=== PATIENT | female | born 1955 | race Caucasian/White ===

== ENCOUNTER 2019-08-11 14:55 | Inpatient (IN) | payer OTHER ==
[~2019-08-11] VITALS: Ht 160 cm; Wt 81.4 kg
[2019-08-11 15:30] LABS: BASOPHILS % (AUTO) 0.2 % (0.0-5.0); EOSINOPHILS % (AUTO) 0.1 % (0.0-8.0); HEMATOCRIT 36.4 % (36-48); LYMPHOCYTES % (AUTO) 6.4 % (21.0-51.0); MEAN CORPUSCULAR HGB CONC 33.5 g/dL (32.0-36.0); MEAN CORPUSCULAR VOLUME 89.5 fL (79-99); MONOCYTES % (AUTO) 11.1 % (3.0-13.0); NEUTROPHILS % (AUTO) 82.2 % (40.0-77.0); PLATELET COUNT (AUTO) 439 K/uL (130-400); RED BLOOD CELL COUNT(AUTO) 4.07 MIL/uL (4.00-5.50); RED CELL DISTRIBUTION WIDTH 13.6 % (11.0-15.5); WHITE BLOOD COUNT (AUTO) 21.4 K/uL (4.8-10.8)
[2019-08-11] MEDS ORDERED: ASPIRIN 325 MG TABLET ONE (15:30)
[2019-08-11] MEDS ORDERED: NITROGLYCERIN 1GM/1 INCH PACKET TD ONE (15:31)
[2019-08-11 15:43] LABS: INR 1.09 (0.85-1.15); PARTIAL THROMBOPLASTIN TIME 32.5 SEC (26.3-35.5); PROTHROMBIN TIME 11.4 SEC (9.6-11.6)
[2019-08-11] MEDS ORDERED: IPRATROPIUM/ALBUTEROL SULFATE 3 ML SOLUTION IH ONE ×2 (15:52→16:06)
[2019-08-11 16:06] LABS: B-TYPE NATRIURETIC PEPTIDE 318 pg/mL (0-100)
[2019-08-11] MEDS ORDERED: AZITHROMYCIN 500MG+NS 250ML 250 ML IV ONE (16:07)
[2019-08-11] MEDS ORDERED: CEFTRIAXONE SODIUM 1 GM ONE (16:08)
[2019-08-11 16:13] LABS: CREATININE 1.1 mg/dL (0.5-1.5); POTASSIUM 4.5 mmol/L (3.5-5.1)
[2019-08-11 16:27] LABS: ABG BASE EXCESS -3.8 mmol/L (-2.0-3.0); ABG HCO3 18.6 mmol/L (21.0-28.0); ABG OXYGEN SATURATION 93.9 % (95.0-99.0); ABG PCO2 28 mmHg (32-45)
[2019-08-11 16:37] LABS: ALBUMIN 2.9 g/dL (3.5-5.0); BILIRUBIN,TOTAL 0.8 mg/dL (0.2-1.0); TOTAL PROTEIN, SERUM 7.5 g/dL (6.0-8.3)
[2019-08-11 16:41] LABS: TROPONIN I 0.65 ng/mL (0.00-0.06)
[2019-08-11] MEDS: NITROGLYCERIN 1GM/1 INCH PACKET TD SCH (17:30)
[2019-08-11] MEDS ORDERED: DEXTROSE 50%-WATER 50 ML DISP.SYRIN IV PRN (17:30)
[2019-08-11] MEDS: 1/2 NORMAL SALINE 1,000 ML IV SCH (17:30)
[2019-08-11] MEDS ORDERED: GLUCAGON 1MG KIT 1 MG ML IM PRN (17:30)
[2019-08-11] MEDS: IPRATROPIUM/ALBUTEROL SULFATE 3 ML SOLUTION IH SCH ×2 (18:21→23:14)
[2019-08-11 18:22] LABS: TROPONIN I 0.6 ng/mL (0.00-0.06)
[2019-08-11 20:30] VITALS: BP 145/90
[2019-08-11] MEDS: INSULIN R PO SSI SQ SCH (21:00)
[2019-08-11 21:32] LABS: TROPONIN I 0.58 ng/mL (0.00-0.06)
[2019-08-11] MEDS: AZITHROMYCIN 250 MG TABLET PO SCH (21:45)
[2019-08-11] MEDS ORDERED: CEFTRIAXONE SODIUM 2 GM VIAL IVP SCH (21:45)
[2019-08-11] MEDS: FAMOTIDINE/PF 20 MG/2 ML VIAL IV SCH (22:27)
[2019-08-11] MEDS ORDERED: LISI-613 PO (23:30)
[2019-08-12 00:20] VITALS: BP 140/74
[2019-08-12] MEDS: NITROGLYCERIN 1GM/1 INCH PACKET TD SCH ×5 (01:01→23:30)
[2019-08-12 03:36] VITALS: BP 147/80
[2019-08-12 04:08] LABS: HEMATOCRIT 31.8 % (36-48); MEAN CORPUSCULAR HGB CONC 33.5 g/dL (32.0-36.0); MEAN CORPUSCULAR VOLUME 89.4 fL (79-99); PLATELET COUNT (AUTO) 392 K/uL (130-400); RED BLOOD CELL COUNT(AUTO) 3.56 MIL/uL (4.00-5.50); RED CELL DISTRIBUTION WIDTH 13.8 % (11.0-15.5); WHITE BLOOD COUNT (AUTO) 20.9 K/uL (4.8-10.8)
[2019-08-12 04:21] LABS: ALBUMIN 2.5 g/dL (3.5-5.0); BILIRUBIN,TOTAL 0.6 mg/dL (0.2-1.0); CREATININE 1.4 mg/dL (0.5-1.5); POTASSIUM 4.4 mmol/L (3.5-5.1); TOTAL PROTEIN, SERUM 6.9 g/dL (6.0-8.3)
[2019-08-12] MEDS: INSULIN R PO SSI SQ SCH ×4 (06:13→21:35)
[2019-08-12] MEDS: IPRATROPIUM/ALBUTEROL SULFATE 3 ML SOLUTION IH SCH ×4 (06:42→23:28)
[2019-08-12] MEDS: GUAIFENESIN-DM 200/20 MG 10 ML PO PRN ×3 (07:58→21:35)
[2019-08-12 07:59] VITALS: BP 154/59
[2019-08-12] MEDS: CEFTRIAXONE SODIUM 1 GM IVP SCH (09:02)
[2019-08-12] MEDS: ASPIRIN 325 MG TABLET PO SCH (09:02)
[2019-08-12] MEDS: ENOXAPARIN SODIUM 40 MG/0.4 ML SYRINGE SQ SCH (09:03)
[2019-08-12] MEDS: 1/2 NORMAL SALINE 1,000 ML IV SCH (11:19)
[2019-08-12 11:49] VITALS: BP 154/86
[2019-08-12 15:37] VITALS: BP 155/75
--- NOTE | 2019-08-12 15:55 | NUR ---
cm note met with patient and states resides at home with spouse independent with adls and ambulation. only has a cane and walker but does not use. no provider. dc plan is back home at time of dc. Addendum: 08/12/19 at 1558 by DENISE MILLER CM Amended: Links added.
[2019-08-12 20:15] VITALS: BP 151/83
[2019-08-12] MEDS: FAMOTIDINE/PF 20 MG/2 ML VIAL IV SCH (20:49)
[2019-08-12] MEDS: AZITHROMYCIN 250 MG TABLET PO SCH (20:49)
[2019-08-13] VITALS (7 sets, daily range): BP systolic 118–150; BP diastolic 60–85
[2019-08-13] MEDS: INSULIN R PO SSI SQ SCH ×4 (07:18→21:00)
[2019-08-13] MEDS: IPRATROPIUM/ALBUTEROL SULFATE 3 ML SOLUTION IH SCH ×4 (07:35→23:08)
--- NOTE | 2019-08-13 07:35 | NUR ---
ASSESSMENT ENCOUNTERED PT A&OX3, CALM COOPERATIVE AND DOES NOT APPEAR TO BE IN ANY DISTRESS NOR ANY NEURO DEFICITS PRESENT. PT DENIES PAIN, SOB, NAUSEA. PT IS ABLE TO TOLERATE FOODS, FLUIDS AND MEDICATION WITHOUT THROAT CLEARING OR COUGH, PT IS AMBULATORY, GAIT SLOW BUT STEADY WITH STAND BY ASSIST. CALL LIGHT WITHIN REACH.
[2019-08-13] MEDS: NITROGLYCERIN 1GM/1 INCH PACKET TD SCH ×4 (07:38→23:51)
[2019-08-13] MEDS ORDERED: FUROSEMIDE 10 MG/ML 4ML VIAL IV SCH (10:30)
[2019-08-13] MEDS: ASPIRIN 325 MG TABLET PO SCH (11:54)
[2019-08-13] MEDS: EZETIMIBE 10 MG TAB PO SCH (11:54)
[2019-08-13] MEDS: CEFTRIAXONE SODIUM 1 GM IVP SCH (11:55)
[2019-08-13] MEDS: ENOXAPARIN SODIUM 40 MG/0.4 ML SYRINGE SQ SCH (11:56)
[2019-08-13] MEDS ORDERED: PHARMACY COMMUNICATION MISC SCH (15:00)
[2019-08-13] MEDS: AZITHROMYCIN 250 MG TABLET PO SCH (21:19)
[2019-08-13] MEDS: FAMOTIDINE/PF 20 MG/2 ML VIAL IV SCH (21:19)
[2019-08-13] MEDS: FUROSEMIDE 10 MG/ML 4ML VIAL IV SCH (21:19)
[2019-08-13] MEDS: GUAIFENESIN-DM 200/20 MG 10 ML PO PRN (22:34)
[2019-08-14 03:43] VITALS: BP 138/74
[2019-08-14 04:37] LABS: BASOPHILS % (AUTO) 0.8 % (0.0-5.0); EOSINOPHILS % (AUTO) 2.2 % (0.0-8.0); HEMATOCRIT 29.1 % (36-48); MEAN CORPUSCULAR HEMOGLOBIN 30.3 pg (27.0-33.0); MEAN CORPUSCULAR HGB CONC 34.3 g/dL (32.0-36.0); MEAN CORPUSCULAR VOLUME 88.2 fL (79-99); MONOCYTES % (AUTO) 8.9 % (3.0-13.0); NEUTROPHILS % (AUTO) 72.1 % (40.0-77.0); NUCLEATED RED BLOOD CELLS 0.1 % (0.0-0.19); PLATELET COUNT (AUTO) 390 K/uL (130-400); RED CELL DISTRIBUTION WIDTH 13.9 % (11.0-15.5); WHITE BLOOD COUNT (AUTO) 11.5 K/uL (4.8-10.8)
[2019-08-14 04:55] LABS: B-TYPE NATRIURETIC PEPTIDE 548 pg/mL (0-100)
[2019-08-14 05:02] LABS: CREATININE 1.1 mg/dL (0.5-1.5); MAGNESIUM 1.8 mg/dL (1.80-2.40); POTASSIUM 3.7 mmol/L (3.5-5.1)
[2019-08-14] MEDS: FUROSEMIDE 10 MG/ML 4ML VIAL IV SCH ×3 (05:09→20:15)
[2019-08-14] MEDS: NITROGLYCERIN 1GM/1 INCH PACKET TD SCH ×4 (05:31→23:01)
[2019-08-14] MEDS: INSULIN R PO SSI SQ SCH ×4 (05:46→21:06)
[2019-08-14 07:00] VITALS: BP 149/61
[2019-08-14] MEDS: IPRATROPIUM/ALBUTEROL SULFATE 3 ML SOLUTION IH SCH ×4 (07:05→23:35)
--- NOTE | 2019-08-14 07:30 | NUR ---
ASSESSMENT ENCOUNTERED PT ASLEEP BUT AROUSEABLE, A&OX3, CALM COOPERATIVE AND DOES NOT APPEAR TO BE IN ANY DISTRESS NOR ANY NEURO DEFICITS PRESENT. PT DENIES PAIN, SOB, NAUSEA. PT IS AMBULATORY, GAIT STEADY AND STRONG WITH STAND BY ASSIST. CALL LIGHT WITHIN REACH.
[2019-08-14] MEDS: ASPIRIN 325 MG TABLET PO SCH (09:35)
[2019-08-14] MEDS: EZETIMIBE 10 MG TAB PO SCH (09:35)
[2019-08-14] MEDS: ENOXAPARIN SODIUM 40 MG/0.4 ML SYRINGE SQ SCH (09:36)
[2019-08-14] MEDS: CEFTRIAXONE SODIUM 1 GM IVP SCH (09:36)
[2019-08-14 11:00] VITALS: BP 124/61
[2019-08-14] MEDS: POLYETHYLENE GLYCOL 3350 17 GM POWD.PACK PO SCH (12:59)
[2019-08-14 15:00] VITALS: BP 156/78
[2019-08-14 19:00] VITALS: BP 128/66
[2019-08-14] MEDS: AZITHROMYCIN 250 MG TABLET PO SCH (20:14)
[2019-08-14] MEDS: FAMOTIDINE/PF 20 MG/2 ML VIAL IV SCH (20:15)
[2019-08-14] MEDS: GUAIFENESIN-DM 200/20 MG 10 ML PO PRN (23:06)
[2019-08-14 23:38] VITALS: BP 162/77
[2019-08-15 04:00] VITALS: BP 124/64
[2019-08-15 04:08] LABS: BASOPHILS % (AUTO) 0.6 % (0.0-5.0); EOSINOPHILS % (AUTO) 1.9 % (0.0-8.0); HEMATOCRIT 30.6 % (36-48); LYMPHOCYTES % (AUTO) 17.6 % (21.0-51.0); MEAN CORPUSCULAR HEMOGLOBIN 30.5 pg (27.0-33.0); MEAN CORPUSCULAR HGB CONC 34.6 g/dL (32.0-36.0); MEAN CORPUSCULAR VOLUME 88.1 fL (79-99); MONOCYTES % (AUTO) 9.3 % (3.0-13.0); NEUTROPHILS % (AUTO) 70.6 % (40.0-77.0); PLATELET COUNT (AUTO) 414 K/uL (130-400); RED BLOOD CELL COUNT(AUTO) 3.48 MIL/uL (4.00-5.50); RED CELL DISTRIBUTION WIDTH 13.6 % (11.0-15.5); WHITE BLOOD COUNT (AUTO) 10.9 K/uL (4.8-10.8)
[2019-08-15 04:28] LABS: B-TYPE NATRIURETIC PEPTIDE 739 pg/mL (0-100)
[2019-08-15 04:38] LABS: MAGNESIUM 1.8 mg/dL (1.80-2.40); PHOSPHORUS 3.7 mg/dL (2.5-4.9); POTASSIUM 3.4 mmol/L (3.5-5.1); THYROID STIMULATING HORMONE 1.49 uIU/mL (0.36-3.74)
[2019-08-15] MEDS: FUROSEMIDE 10 MG/ML 4ML VIAL IV SCH (05:09)
[2019-08-15] MEDS: NITROGLYCERIN 1GM/1 INCH PACKET TD SCH ×4 (05:10→22:00)
[2019-08-15] MEDS: INSULIN R PO SSI SQ SCH ×4 (05:59→21:59)
[2019-08-15] MEDS: IPRATROPIUM/ALBUTEROL SULFATE 3 ML SOLUTION IH SCH ×4 (06:10→23:28)
[2019-08-15 07:52] VITALS: BP 146/79
[2019-08-15] MEDS ORDERED: FUROSEMIDE 10 MG/ML 4ML VIAL IV SCH (08:00)
[2019-08-15] MEDS: EZETIMIBE 10 MG TAB PO SCH (08:04)
[2019-08-15] MEDS: ENOXAPARIN SODIUM 40 MG/0.4 ML SYRINGE SQ SCH (08:04)
[2019-08-15] MEDS: POLYETHYLENE GLYCOL 3350 17 GM POWD.PACK PO SCH (08:04)
[2019-08-15] MEDS: GUAIFENESIN-DM 200/20 MG 10 ML PO PRN (08:04)
[2019-08-15] MEDS: CEFTRIAXONE SODIUM 1 GM IVP SCH (08:04)
[2019-08-15] MEDS: ASPIRIN 325 MG TABLET PO SCH (08:05)
[2019-08-15] MEDS: MAGNESIUM OXIDE 400 MG TABLET PO SCH ×2 (08:10→21:58)
[2019-08-15] MEDS ORDERED: POTASSIUM CHLORIDE 20 MEQ ERTAB PO SCH (09:00)
[2019-08-15 11:41] VITALS: BP 132/60
[2019-08-15 15:07] VITALS: BP 140/65
[2019-08-15 19:00] VITALS: BP 133/71
[2019-08-15] MEDS: AZITHROMYCIN 250 MG TABLET PO SCH (21:58)
[2019-08-15] MEDS: FAMOTIDINE/PF 20 MG/2 ML VIAL IV SCH (21:58)
[2019-08-15 23:00] VITALS: BP 117/60
[2019-08-16 03:46] LABS: BASOPHILS % (AUTO) 0.9 % (0.0-5.0); EOSINOPHILS % (AUTO) 2.6 % (0.0-8.0); HEMATOCRIT 29.8 % (36-48); LYMPHOCYTES % (AUTO) 20.7 % (21.0-51.0); MEAN CORPUSCULAR HEMOGLOBIN 29.8 pg (27.0-33.0); MEAN CORPUSCULAR HGB CONC 33.7 g/dL (32.0-36.0); MEAN CORPUSCULAR VOLUME 88.5 fL (79-99); MONOCYTES % (AUTO) 11.9 % (3.0-13.0); NEUTROPHILS % (AUTO) 63.9 % (40.0-77.0); PLATELET COUNT (AUTO) 426 K/uL (130-400); RED BLOOD CELL COUNT(AUTO) 3.37 MIL/uL (4.00-5.50); RED CELL DISTRIBUTION WIDTH 13.5 % (11.0-15.5); WHITE BLOOD COUNT (AUTO) 9.4 K/uL (4.8-10.8)
[2019-08-16 04:00] VITALS: BP 127/68
[2019-08-16 04:01] LABS: MAGNESIUM 1.8 mg/dL (1.80-2.40); PHOSPHORUS 3.3 mg/dL (2.5-4.9); POTASSIUM 3.6 mmol/L (3.5-5.1)
[2019-08-16] MEDS: NITROGLYCERIN 1GM/1 INCH PACKET TD SCH ×3 (06:26→17:20)
[2019-08-16] MEDS: INSULIN R PO SSI SQ SCH ×3 (06:50→17:19)
[2019-08-16] MEDS: IPRATROPIUM/ALBUTEROL SULFATE 3 ML SOLUTION IH SCH ×2 (06:53→11:05)
[2019-08-16 07:25] VITALS: BP 140/73
[2019-08-16] MEDS: GUAIFENESIN-DM 200/20 MG 10 ML PO PRN (08:08)
[2019-08-16] MEDS: EZETIMIBE 10 MG TAB PO SCH (08:08)
[2019-08-16] MEDS: ASPIRIN 325 MG TABLET PO SCH (08:08)
[2019-08-16] MEDS: POLYETHYLENE GLYCOL 3350 17 GM POWD.PACK PO SCH (08:08)
[2019-08-16] MEDS: CEFTRIAXONE SODIUM 1 GM IVP SCH (08:10)
[2019-08-16] MEDS: ENOXAPARIN SODIUM 40 MG/0.4 ML SYRINGE SQ SCH (08:15)
[2019-08-16 11:37] VITALS: BP 148/78
--- NOTE | 2019-08-16 12:37 | NUR ---
RD NOTIFICATION RD CONSULTS DUE TO LOS X 5. DIET: 75GMCCD. PO INTAKE 100% AND HAS GOOD APPETITE. PT STATED SHE REALLY LIKES [facility] FOOD AND HAS NO COMPLAINTS. LBM: 08/14 PER PT. NO DIFFICULTY CHEWING OR SWALLOWING FOOD/ LIQUIDS. NO COMPLAINTS OF N/V. PT COOKS 2 MEALS DAILY AT HOME, PT AND TAKE TURNS COOKING MEALS. RD RECOMMENDS CONTINUE CURRENT DIET RD WILL FOLLOW UP NEEDED, THANK YOU. Addendum: 08/16/19 at [address] Amended: Links added.
[2019-08-16 15:24] VITALS: BP 144/52
[2019-08-16] MEDS ORDERED: INSU100I13 SQ (16:40)
[2019-08-16] MEDS ORDERED: LEVO500T2 PO (16:45)
[2019-08-16] MEDS ORDERED: AEC81 PO (16:45)
[2019-08-16] MEDS ORDERED: EZET10TA13 PO (16:45)
== END 2019-08-16 18:03 | disposition home or self-care (01) | DRG 177 ==
LOC: EDH 14:55 → EDHIP 17:00 → 2DH 20:08
PROVIDERS: ADMIT Family Medicine; ATTEND Family Medicine
PROC: 5A09357 Assistance with Respiratory Ventilation, Less than 24 Consecutive Hours, Continuous Positive Airway Pressure (ICD-10-PCS; principal; 2019-08-11)
PROC: 5A09357 Assistance with Respiratory Ventilation, Less than 24 Consecutive Hours, Continuous Positive Airway Pressure (ICD-10-PCS; 2019-08-12)
DX: J15.6 Pneumonia due to other Gram-negative bacteria (principal); I50.31 Acute diastolic (congestive) heart failure; J96.01 Acute respiratory failure with hypoxia; I13.0 Hypertensive heart and chronic kidney disease with heart failure and stage 1 through stage 4 chronic kidney disease, or unspecified chronic kidney disease; N18.3 Chronic kidney disease, stage 3 (moderate); E11.22 Type 2 diabetes mellitus with diabetic chronic kidney disease; D64.9 Anemia, unspecified; F32.9 Major depressive disorder, single episode, unspecified; G47.00 Insomnia, unspecified; I25.10 Atherosclerotic heart disease of native coronary artery without angina pectoris; I65.21 Occlusion and stenosis of right carotid artery; K59.00 Constipation, unspecified; Z79.4 Long term (current) use of insulin; Z80.0 Family history of malignant neoplasm of digestive organs; Z80.41 Family history of malignant neoplasm of ovary; Z90.710 Acquired absence of both cervix and uterus; Z90.49 Acquired absence of other specified parts of digestive tract
CPT/HCPCS: 36415; 36600; 71045; 71046; 80048; 80053; 82550; 82803; 82948; 83605; 83735; 83874; 83880; 84100; 84145; 84439; 84443; 84484; 85025; 85027; 85610; 85730; 87040; 87071; 87205; 87486; 87581; 87633; 87798; 87804; 93005; 93306; 93880; 94640; 94660; 94664; 99291; G0378; J0456; J0696; J1650; J1815; J1940; J3490

== ENCOUNTER → 2019-10-08 | Outpatient (CLI) | payer OTHER ==
[~2019-10-08] MED LIST: AEC81 PO; EZET10TA13 PO; INSU100I13 SQ; LEVO500T2 PO; LISI-613 PO
== END | disposition home or self-care (01) ==
LOC: RAH 10:45
PROVIDERS: ATTEND Internal Medicine Cardiovascular Disease
DX: Z13.6 Encounter for screening for cardiovascular disorders (principal); I70.90 Unspecified atherosclerosis; M47.819 Spondylosis without myelopathy or radiculopathy, site unspecified
CPT/HCPCS: 75571

== ENCOUNTER → 2019-10-12 | Outpatient (CLI) | payer OTHER | END | disposition home or self-care (01) | LOC: SHCH 13:35 | PROVIDERS: ATTEND Internal Medicine Cardiovascular Disease | DX: I51.7 Cardiomegaly (principal); I31.3 Pericardial effusion (noninflammatory) | CPT/HCPCS: 93306 ==

== ENCOUNTER → 2024-03-06 | Outpatient (CLI) | payer OTHER ==
[~2024-03-06] MED LIST changes: -EZET10TA13 PO; +EZET10TA81 PO; -LISI-613 PO; +LISI20TA24 PO
== END | disposition home or self-care (01) ==
LOC: SHCH 12:19
PROVIDERS: ATTEND Internal Medicine Cardiovascular Disease
DX: I08.8 Other rheumatic multiple valve diseases (principal); I65.23 Occlusion and stenosis of bilateral carotid arteries; I25.10 Atherosclerotic heart disease of native coronary artery without angina pectoris; R01.1 Cardiac murmur, unspecified
CPT/HCPCS: 93306; 93880

== ENCOUNTER 2024-11-22 13:57 | Emergency (ER) | payer OTHER ==
[~2024-11-22] VITALS: Ht 160 cm; Wt 77.1 kg
--- NOTE | 2024-11-22 14:36 | NUR ---
APPLIED LG SLING TO RT ARM, PT TOLERATED WELL.
--- NOTE | 2024-11-22 14:59 | ERN ---
General Chief Complaint: Shoulder Injury/Pain Stated Complaint: SHOULDER PAIN Time Seen by MD: 14:14 Time Seen by Midlevel: 14:14 Source: patient History of Present Illness Initial Comments 69-year-old female presents to the ED for evaluation of right shoulder pain. Patient reports right shoulder fracture post fall on 11/06/2024 patient had x- rays done by PCP and was referred to ortho, but patient states she was not able to get an appointment to see ortho and was told to come to the ER. Allergies: Coded Allergies: No Known Drug Allergies (Verified Allergy, Unknown, 08/11/19) Home Meds Active Scripts Levofloxacin (Levaquin) 500 Mg Tablet, 500 MG PO DAILY for 7 Days, #7 TAB Prov:YANCY WILL Jr., MD 08/16/19 Ezetimibe (Zetia) 10 Mg Tablet, 10 MG PO DAILY for 30 Days, #30 TAB Prov:YANCY WILL Jr., MD 08/16/19 Aspirin (ASPIRIN 81 MG ECTAB) 81 Mg Ectab, 81 MG PO DAILY for 30 Days, #30 TAB.EC Prov:YANCY WILL Jr., MD 08/16/19 Reported Medications Insulin NPL/Insulin Lispro (Humalog Mix 75-25 Kwikpen) 100 Unit/1 Ml Insuln.pen, 20 UNIT SQ BID 08/16/19 Lisinopril (Lisinopril) 20 Mg Tablet, 20 MG PO DAILY, TAB 08/11/19 Past Medical History Past Medical History: No Pertinent History, Diabetes-Type II, High Cholesterol, Hypertension, Renal Disese Past Surgical History: Other ROS Dictation Constitutional: Negative for fever,chills, and weight loss Eyes: Negative for injury, pain,redness, and discharge ENT: Negative for injury,pain or swelling Cardiovascular: Negative for chest pain, palpitations, and edema Respiratory: Negative for shortness of breath, cough, and wheezing, Abdomen/GI: Negative for abdominal pain, nausea, vomiting, diarrhea, and constipation Back: Negative for injury and pain : Negative for injury, bleeding and discharge MS/Extremity: Positive for right shoulder pain Skin: Negative for rash, and discoloration Neuro: Negative for headache, weakness, numbness, tingling, and seizure Psych: Negative for suicide ideation, homicidal ideation, and hallucinations Physical Exam Physical Exam Dictation General: awake, alert, NAD Head/Face: Normocephalic, atraumatic Eyes: PERRL, EOMI, vision at baseline ENT: oral cavity clear, TMs clear, no signs of infection Neck: Trachea midline, supple, no nuchal rigidity Cardiovascular: RRR, normal S1/S2, No MRGs, no JVD Respiratory: CTAB, no respiratory distress, No rales or wheezes Abdomen: Soft, non-tender, non-distended, normal bowel sounds, no guarding or rebound. Skin: Warm, dry, normal turgor, no rash MS/Extremity: Pulses equal, no cyanosis, neurovascular intact, FROM Neuro: COAx4, GCS 15, strength 5/5, CN 2-12 intact, normal cerebellar exam, norm al gait, Psych: Normal behavior, mood, and affect normal MDM MDM: 69-year-old female presenting to the ER with right shoulder pain following a fall proximally two weeks ago. X-ray shows a proximal neck fracture of the humerus. The case was discussed with home staging specialist Dr. Ross who recommends outpatient follow up. The patient was put on a sling and discharged home. Differential diagnosis: right shoulder pain, fracture, dislocation Rationale: Tests considered and ordered secondary to shared decision making include: labs, ECG and radiology Previous outside records reviewed: Old ER visits. Risk of complication and/or morbidity or mortality of patient management: None Medications-Per medication reconciliation Need for hospitalization: Patient does meet criteria for hospitalization. Need for emergency major/minor surgery: No There are no social concerns with this patient. Prescription drug management Prescriptions will include symptomatic care Patient's prior external medical records from other ER visits were reviewed by me as indicated. Prior testing and results from previous visits were reviewed. Prior tests were taken into account with medical decision making and resource utilization, independent historian/historians were used to obtain complete medical history. I independently interpreted the test that were performed, results were reviewed by me and considered findings on radiology if ordered. Medical management and examination interpretation discussions were had by me w ith other qualified healthcare professionals as indicated for the patient's care. ED Course Orders Procedure Category Date Status Time Shoulder Comp 2+Vws Rt RAD 11/22/24 Resulted 14:28 Humerus 2+Vws Rt RAD 11/22/24 Resulted 14:28 Sling NILO 11/22/24 Complete 14:34 Vital Signs Date Time Temp Pulse Resp B/P (MAP) Pulse Ox O2 Delivery O2 Flow Rate FiO2 11/22/24 15:56 98.2 76 18 141/73 98 Room Air* 0 21 11/22/24 14:23 98.4 78 20 141/78 98 Room Air* 0 21 11/22/24 14:01 98.4 78 20 146/74 98 Room Air [facility] [address] [place] [address] [id number] IMAGING REPORT Signed PATIENT: SUDHA RAMOS MR#: [id number] : 1955 SEX: F AGE: 69 LOCATION: ED ORDER 28 STATUS: REG ER REPORT#: [id number] SERVICE 27 REASON: fall r/o fx ORDERING PHYSICIAN: KELVIN LONG PROCEDURE: SHOL 2V RT - SHOULDER COMP 2+VWS RT SHOULDER COMP 2+VWS RT REASON: fall r/o fx TECHNIQUE: 2 views were obtained. FINDINGS: There is no evidence of fracture or dislocation. There is no joint effusion. The soft tissues appear unremarkable. There is no evidence of a radiopaque foreign body. IMPRESSION: No acute findings. DICTATED BY: BARRY MONSON MD DATE: 11/22/241505 ELECTRONICALLY SIGNED BY: BARRY MONSON MD DATE: 11/22/241508 [facility] [address] [place] [id number] IMAGING REPORT Signed PATIENT: SUDHA RAMOS MR#: [id number] : 1955 SEX: F AGE: 69 LOCATION: ED ORDER 28 STATUS: REG ER [facility] REPORT#: [id number] SERVICE 27 REASON: fall r/o fx ORDERING PHYSICIAN: KELVIN LONG PROCEDURE: HUM 2V RT - HUMERUS 2+VWS RT HUMERUS 2+VWS RT REASON: fall r/o fx TECHNIQUE: 2 views were obtained. FINDINGS: There is some lucency in the neck of the humerus which is probably a poorly visualized fracture. CT may be helpful to confirm. Humerus appears otherwise unremarkable. Soft tissues are unremarkable. IMPRESSION: 1. Probable poorly visualized fracture of the proximal neck of the right humerus, CT recommended for further evaluation. DICTATED BY: BARRY MONSON MD DATE: 11/22/241514 ELECTRONICALLY SIGNED BY: BARRY MONSON MD DATE: 11/22/241517 DX & DISP Disposition: Discharge Departure Impression: Primary Impression: Closed fracture of neck of right humerus Condition: Stable Referrals: JUAN ANTONIO GARCIA DO (PCP) MALKA ROSS MD I have reviewed, & agreed with my scribe's, documentation. (I, Rashad Gardiner, am scribing for JOANNA Long) I performed the substantive portion of the visit. I have reviewed and personally made and approve the management plan that is documented in the notes by myself or the ALEXIS. I acknowledge full responsibility for the patient's management plan. I personally scribed for KELVIN LONG ([facility]) on 11/22/24 at 14:59. Electronically submitted by Rashad Gardiner ([email or web address]). KELVIN LONG Nov 22, 2024 14:59
--- NOTE | 2024-11-22 15:09 | HMCIMG ---
SHOULDER COMP 2+VWS RT REASON: fall r/o fx TECHNIQUE: 2 views were obtained. FINDINGS: There is no evidence of fracture or dislocation. There is no joint effusion. The soft tissues appear unremarkable. There is no evidence of a radiopaque foreign body. IMPRESSION: No acute findings.
--- NOTE | 2024-11-22 15:18 | HMCIMG ---
HUMERUS 2+VWS RT REASON: fall r/o fx TECHNIQUE: 2 views were obtained. FINDINGS: There is some lucency in the neck of the humerus which is probably a poorly visualized fracture. CT may be helpful to confirm. Humerus appears otherwise unremarkable. Soft tissues are unremarkable. IMPRESSION: 1. Probable poorly visualized fracture of the proximal neck of the right humerus, CT recommended for further evaluation.
[2024-11-22 15:56] VITALS: BP 141/73; PULSE 76; RESP 18; TEMP 98.2; O2SAT 98
== END 2024-11-22 15:57 | disposition home or self-care (01) ==
LOC: EDH 13:57
DX: S42.211A Unspecified displaced fracture of surgical neck of right humerus, initial encounter for closed fracture (principal); Z79.82 Long term (current) use of aspirin; Z79.899 Other long term (current) drug therapy; W18.39XA Other fall on same level, initial encounter; Y93.89 Activity, other specified; Y92.89 Other specified places as the place of occurrence of the external cause; Y99.8 Other external cause status
CPT/HCPCS: 73030; 73060; 99284